=== PATIENT | male | born 1965 | race Caucasian/White ===

== ENCOUNTER → 2017-02-09 | Outpatient (CLI) | payer OTHER ==
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
== END ==
LOC: IMA 10:16
DX: Z02.9 Encounter for administrative examinations, unspecified (principal); M19.011 Primary osteoarthritis, right shoulder